=== PATIENT | male | born 1990 | race Caucasian/White ===

== ENCOUNTER 2020-03-30 18:50 | Emergency (ER) | payer MEDICAID, OTHER, SELFPAY ==
[~2020-03-30] VITALS: Ht 175.3 cm; Wt 63.8 kg
[2020-03-30] MEDS ORDERED: KETOROLAC 30 MG/ML 1ML VIAL IV ONE (21:30)
[2020-03-30] MEDS ORDERED: METOCLOPRAMIDE INJ 10MG/2ML VIAL (J2765 PER 1) IV ONE (21:30)
[2020-03-30] MEDS ORDERED: NS 1,000 ML IV ONE (21:30)
[2020-03-30] MEDS ORDERED: diphenhydrAMINE 50MG/ML VIAL (J1200) IV ONE (21:30)
[2020-03-30 21:59] LABS: BASO # 0.1 10^3/uL (0.0-0.2); BASO % 0.9 % (0.0-1.0); EOS # 0.1 10^3/uL (0.0-0.5); EOS % 1.2 % (0.0-3.0); HEMATOCRIT 44.7 % (42.0-52.0); HEMOGLOBIN 14.4 g/dl (13.5-17.5); LYMPH # 1.3 10^3/uL (1.5-5.0); LYMPH % 19.3 % (24.0-44.0); MEAN CORPUSCULAR HEMOGLOBIN 30.1 pg (27.0-33.0); MEAN CORPUSCULAR HGB CONC 32.2 g/dl (32.0-36.5); MEAN CORPUSCULAR VOLUME 93.3 fl (80.0-96.0); MONO # 0.7 10^3/uL (0.0-0.8); MONO % 9.6 % (0.0-5.0); NEUTROPHILS # 4.7 10^3/uL (1.5-8.5); NEUTROPHILS % 68.6 % (36.0-66.0); PLATELET COUNT, AUTOMATED 236 10^3/uL (150-450); RED BLOOD COUNT 4.79 10^6/uL (4.30-6.10); WHITE BLOOD COUNT 6.9 10^3/uL (4.0-10.0)
[2020-03-30 22:19] LABS: BLOOD UREA NITROGEN 12 MG/DL (7-18); C REACTIVE PROTEIN QUANTITATIV 8.68 MG/DL (0.00-0.30); CALCIUM LEVEL 8.4 MG/DL (8.5-10.1); CARBON DIOXIDE LEVEL 27 MEQ/L (21-32); CHLORIDE LEVEL 103 MEQ/L (98-107); GLOMERULAR FILTRATION RATE > 60.0 (>60); GLUCOSE, FASTING 98 MG/DL (70-100); MAGNESIUM LEVEL 2.3 MG/DL (1.8-2.4); POTASSIUM SERUM 4.1 MEQ/L (3.5-5.1); SODIUM LEVEL 136 MEQ/L (136-145)
[2020-03-30 22:31] LABS: ERYTHROCYTE SEDIMENTATION RATE 42 mm/hr (0-15)
--- NOTE | 2020-03-30 23:51 | REPVR ---
PROCEDURE INFORMATION: Exam: CT Head Without Contrast Exam date and time: 03/30/2020 11:17 PM Age: 29 years old Clinical indication: Pain; Headache; Additional info: Severe headache, no similar in past TECHNIQUE: Imaging protocol: Computed tomography of the head without contrast. Radiation optimization: All CT scans at this facility use at least one of these dose optimization techniques: automated exposure control; mA and/or kV adjustment per patient size (includes targeted exams where dose is matched to clinical indication); or iterative reconstruction. COMPARISON: No relevant prior studies available. FINDINGS: Brain: There is no CT evidence for an acute large vessel territorial infarct. No acute intracranial hemorrhage is seen. No mass, mass effect, midline shift, or herniation is noted. The cortical gyration pattern, basal ganglia, thalami, brainstem, and cerebellum are normal in appearance. Cerebral ventricles: No hydrocephalus. Incidental note is made of a normal variant cavum septum pellucidum and cavum vergae, which is persistence of the embryological fluid-filled space between the leaflets of the septum pellucidum. Bones/joints: There is no acute fracture. No suspicious osteolytic or osteoblastic lesion. Paranasal sinuses: Visualized sinuses are unremarkable. No fluid levels. Mastoid air cells: Clear. Orbital cavity: There is a small chronic blowout fracture involving the medial wall of the right orbit. The globes and orbits were not fully imaged. Soft tissues: Unremarkable. No soft tissue fluid collection. IMPRESSION: 1. No acute intracranial abnormality. 2. Small chronic blowout fracture involving the medial wall of the right orbit. Electronically signed by: Carl Lazar On 03/30/2020 23:51:12 PM
[2020-03-31 00:10] VITALS: BP 129/71
== END 2020-03-31 00:12 | disposition home or self-care (01) ==
LOC: M ED 18:50
DX: R50.9 Fever, unspecified (principal); R51.9 Headache, unspecified; R21 Rash and other nonspecific skin eruption; F17.210 Nicotine dependence, cigarettes, uncomplicated
CPT/HCPCS: 70450; 80048; 83735; 85025; 85652; 86140; 87040; 87631; 87880; 96361; 96374; 96375; 99284; J1200; J1885; J2765

== ENCOUNTER 2020-04-15 11:02 | Emergency (ER) | payer MEDICAID ==
[~2020-04-15] VITALS: Ht 175.3 cm; Wt 64.7 kg
[2020-04-15 11:02] VITALS: BP 131/69
[2020-04-15] MEDS ORDERED: KEFL500C17 PO (11:37)
== END 2020-04-15 11:45 | disposition home or self-care (01) ==
LOC: M ED 11:02
DX: J02.0 Streptococcal pharyngitis (principal); F17.210 Nicotine dependence, cigarettes, uncomplicated

== ENCOUNTER 2020-05-28 17:38 | Emergency (ER) | payer MEDICAID, OTHER ==
[~2020-05-28] VITALS: Ht 175.3 cm; Wt 63.2 kg
[~2020-05-28 17:38] MED LIST: KEFL500C17 PO
--- OUTSIDE RECORDS SUMMARY | 2020-05-28 17:44 | CCD ---
Author Author [facility] Organization [facility] Address Unknown Phone Unavailable Support Name Relationship Address Phone UE Next Of Kin Unknown Unavailable OLIVERIO DOOLEY Next Of Kin [address] [place] [address] [place] [address] Next Of Kin Unknown Unavailable ROCAEL PEDRAZA Next Of Kin [address] [place] [address] RITA PEDRAZA Next Of Kin [address] [place] [address] Re-disclosure Warning The records that you are about to access may contain information from federally-assisted alcohol or drug abuse programs. If such information is present, then the following federally mandated warning applies: This information has been disclosed to you from records protected by federal confidentiality rules (42 CFR part 2). The federal rules prohibit you from making any further disclosure of this information unless further disclosure is expressly permitted by the written consent of the person to whom it pertains or as otherwise permitted by 42 CFR part 2. A general authorization for the release of medical or other information is NOT sufficient for this purpose. The Federal rules restrict any use of the information to criminally investigate or prosecute any alcohol or drug abuse patient.The records that you are about to access may contain highly sensitive health information, the redisclosure of which is protected by Article 27-F of the [facility] Public Health law. If you continue you may have access to information: Regarding HIV / AIDS; Provided by facilities licensed or operated by the [facility] Office of Mental Health; or Provided by the [facility] Office for People With Developmental Disabilities. If such information is present, then the following [facility] mandated warning applies: This information has been disclosed to you from confidential records which are protected by state law. State law prohibits you from making any further disclosure of this information without the specific written consent of the person to whom it pertains, or as otherwise permitted by law. Any unauthorized further disclosure in violation of state law may result in a fine or skilled nursing sentence or both. A general authorization for the release of medical or other information is NOT sufficient authorization for further disc losure. Insurance Providers Payer name Policy type / Coverage type Policy ID Covered green party ID Covered green party's relationship to trejo Policy Trejo Plan Information EMEDNY [id number] SP [id number] SELF PAY ONLY [id number] SP [id number] [facility] COMM[facility] PLAN [facility] [id number] SP [id number] [facility] [id number] SP [id number] [facility] [id number] SP [id number] MEDICAID [id number] SP [id number] Results ID Date Data Source [id number] 03/30/2020 09:27:00 PM EST [facility] Name Value Range Interpretation Code Description Data Argelia rce(s) Supporting Document(s) SARS coronavirus 2 RNA [Presence] in Res piratory specimen by SHANI with probe detection [facility] This lab was ordered by [facility] a nd reported by [facility]. Procedure
[2020-05-28] MEDS ORDERED: IBUP200T45 PO (18:00)
--- OUTSIDE RECORDS SUMMARY | 2020-05-28 19:52 | CCD ---
Author Author [facility] Organization [facility] Address Unknown Phone Unavailable Support Name Relationship Address Phone UE Next Of Kin Unknown Unavailable OLIVERIO DOOLEY Next Of Kin [address] [place] [address] [place] [address] Next Of Kin Unknown Unavailable ROCAEL PEDRAZA Next Of Kin [address] [place] [address] RITA PEDRAZA Next Of Kin [address] [place] [address] Re-disclosure Warning The records that you are [...] is protected by Article 27-F of the [facility] Public Health law. If you continue you may have access to information: Regarding HIV / AIDS; Provided by facilities licensed or operated by the [facility] Office of Mental Health; or Provided by the [facility] Office for People With Developmental Disabilities. If such information is present, then the following [facility] mandated warning applies: This information [...] type / Coverage type Policy ID Covered republican ID Covered republican's relationship to trejo Policy Trejo Plan Information EMEDNY [id number] SP [id number] SELF PAY ONLY [id number] SP [id number] [facility]AN [facility] [id number] SP [id number] [facility] [id number] SP [id number] [facility] [id number] SP [id number] MEDICAID [id number] SP [id number] Results ID Date Data Source [id number] 03/30/2020 09:27:00 PM EST [facility] Name Value Range Interpretation Code Description Data Argelia rce(s) Supporting Document(s) SARS coronavirus 2 RNA [Presence] in Res piratory specimen by SHANI with probe detection [facility] This lab was ordered by [facility] a nd reported by [facility]. Procedure
[2020-05-28 21:35] LABS: BASO # 0.1 10^3/uL (0.0-0.2); BASO % 0.9 % (0.0-1.0); EOS # 0.1 10^3/uL (0.0-0.5); EOS % 1.5 % (0.0-3.0); HEMATOCRIT 44.8 % (42.0-52.0); HEMOGLOBIN 14.3 g/dl (13.5-17.5); LYMPH # 2.3 10^3/uL (1.5-5.0); MEAN CORPUSCULAR HEMOGLOBIN 30.3 pg (27.0-33.0); MEAN CORPUSCULAR HGB CONC 31.9 g/dl (32.0-36.5); MEAN CORPUSCULAR VOLUME 94.9 fl (80.0-96.0); MONO # 0.6 10^3/uL (0.0-0.8); MONO % 9.3 % (0.0-5.0); NEUTROPHILS # 3.6 10^3/uL (1.5-8.5); PLATELET COUNT, AUTOMATED 294 10^3/uL (150-450); RED BLOOD COUNT 4.72 10^6/uL (4.30-6.10); WHITE BLOOD COUNT 6.7 10^3/uL (4.0-10.0)
[2020-05-28 22:01] LABS: ACETAMINOPHEN LEVEL < 2.0 UG/ML (10.0-30.0); ALBUMIN 3.7 GM/DL (3.2-5.2); ALT/SGPT 28 U/L (12-78); BILIRUBIN,DIRECT < 0.1 MG/DL (0.0-0.2); BILIRUBIN,TOTAL 0.2 MG/DL (0.2-1.0); TOTAL PROTEIN 8.3 GM/DL (6.4-8.2)
[2020-05-28] MEDS ORDERED: diphenhydrAMINE 25MG CAP PO ONE (22:15)
[2020-05-28] MEDS ORDERED: KETOROLAC 60MG 2ML VIAL IM ONE (22:15)
[2020-05-28 23:02] VITALS: BP 127/81
== END 2020-05-28 23:03 | disposition home or self-care (01) ==
LOC: M ED 17:38
DX: R51.9 Headache, unspecified (principal); F17.210 Nicotine dependence, cigarettes, uncomplicated
CPT/HCPCS: 36415; 80047; 80076; 80143; 85025; 87880; 96372; 99284; J1885

== ENCOUNTER 2020-08-08 11:41 | Inpatient (IN) | payer OTHER ==
[~2020-08-08] VITALS: Ht 177.8 cm; Wt 62.2 kg
[~2020-08-08 11:41] MED LIST changes: +IBUP200T45 PO
--- NOTE | 2020-08-08 12:18 | REP ---
INDICATION: acute neuro symptoms. COMPARISON: None. TECHNIQUE: Axial CT images with multiplanar reformations. FINDINGS: There is a focal hypodensity near the genu of the left internal capsule (im17 se 201). No hemorrhage. Ventricles, cisterns and sulci are within normal limits. No mass effect or midline shift. No abnormal fluid collections. When compared to a prior head CT from 03/30/2020, the hypodensity described was not present. Incidental note made of cavum septum pellucidum et vergae. IMPRESSION: Focal hypodensity at the genu of the left internal capsule is new from the comparison study 03/30/2020. The findings are concerning for recent infarct. Imaging characteristics would suggest older than 24 hours however acuity indeterminate. No bleed. MRI may be helpful in further evaluation. Findings discussed with Dr. Cross in the emergency department at the time of interpretation. <Electronically signed by Adrian Maldonado > 08/08/20 [id number]
[2020-08-08 12:46] LABS: BASO # 0.1 10^3/uL (0.0-0.2); EOS # 0.1 10^3/uL (0.0-0.5); EOS % 2.9 % (0.0-3.0); HEMATOCRIT 41.3 % (42.0-52.0); LYMPH % 40.2 % (24.0-44.0); MEAN CORPUSCULAR HEMOGLOBIN 32.1 pg (27.0-33.0); MEAN CORPUSCULAR HGB CONC 33.9 g/dl (32.0-36.5); MEAN CORPUSCULAR VOLUME 94.7 fl (80.0-96.0); MONO # 0.5 10^3/uL (0.0-0.8); MONO % 11.1 % (2.0-8.0); NEUTROPHILS # 2.2 10^3/uL (1.5-8.5); NEUTROPHILS % 44.6 % (36.0-66.0); PLATELET COUNT, AUTOMATED 193 10^3/uL (150-450); RED BLOOD COUNT 4.36 10^6/uL (4.30-6.10); WHITE BLOOD COUNT 4.9 10^3/uL (4.0-10.0)
[2020-08-08] MEDS ORDERED: ISOVUE-370 76% 100ML VIAL As Ordered ONE (12:47)
[2020-08-08 12:55] LABS: PROTHROMBIN TIME 13.4 SECONDS (12.5-14.3)
[2020-08-08 12:56] LABS: PARTIAL THROMBOPLASTIN TIME 35.9 SECONDS (24.2-38.5)
[2020-08-08 13:05] LABS: ERYTHROCYTE SEDIMENTATION RATE 17 mm/hr (0-15)
[2020-08-08 13:15] LABS: ALBUMIN 3.8 GM/DL (3.2-5.2); ALT/SGPT 25 U/L (12-78); BILIRUBIN,DIRECT < 0.1 MG/DL (0.0-0.2); BILIRUBIN,TOTAL 0.3 MG/DL (0.2-1.0); BLOOD UREA NITROGEN 7 MG/DL (7-18); C REACTIVE PROTEIN QUANTITATIV 0.33 MG/DL (0.00-0.30); CALCIUM LEVEL 9.2 MG/DL (8.5-10.1); CARBON DIOXIDE LEVEL 27 MEQ/L (21-32); CHLORIDE LEVEL 108 MEQ/L (98-107); CHOLESTEROL LEVEL 145 MG/DL (<200); CHOLESTEROL RISK RATIO 4.264 (<5); CK-MB VALUE MASS < 1.0 NG/ML (<3.6); CPK CREATINE PHOSPHOKINASE 67 U/L (39-308); CREATININE FOR GFR 0.84 MG/DL (0.70-1.30); GLOMERULAR FILTRATION RATE > 60.0 (>60); GLUCOSE, FASTING 83 MG/DL (70-100); HDL CHOLESTEROL 34 MG/DL (>40); LDL CHOLESTEROL 83 MG/DL (<100); MB/CK RELATIVE INDEX 1.49 (< OR =4); NON-HDL-C 111 MG/DL; SODIUM LEVEL 138 MEQ/L (136-145); TOTAL PROTEIN 7.9 GM/DL (6.4-8.2); TRIGLYCERIDES LEVEL 140 MG/DL (<150); TROPONIN I < 0.02 NG/ML (< 0.10)
--- NOTE | 2020-08-08 13:30 | REP ---
INDICATION: CVA. COMPARISON: None. TECHNIQUE: Axial CT images with multiplanar reformations with contrast. FINDINGS: The left vertebral artery is dominant. Basilar artery and yarder boss are unremarkable. Internal carotid arteries, proximal and distal MCA branches are normal. A1 segments and LUC branches are unremarkable. IMPRESSION: Normal CT angiogram of the brain. No large vessel stenosis or occlusion. No aneurysm identified. <Electronically signed by Adrian Maldonado > 08/08/20 [id number]
--- NOTE | 2020-08-08 13:32 | REP ---
INDICATION: Question stroke COMPARISON: No prior similar study TECHNIQUE: Axial CT images with multiplanar reformations with contrast. FINDINGS: The right vertebral artery is dominant. The vertebral arteries are present throughout their cervical course. No evidence of stenosis or occlusion. On the right: The common and internal carotid arteries widely patent. No evidence of stenosis or occlusion. On the left: The common and internal carotid arteries widely patent. No evidence of stenosis or occlusion. There is only minimal degenerative changes of the cervical spine. No significant osseous canal narrowing or foraminal narrowing. IMPRESSION: Normal examination. <Electronically signed by Adrian Maldonado > 08/08/20 [id number]
--- NOTE | 2020-08-08 13:36 | REP ---
INDICATION: CVA. COMPARISON: 05/13/2014 a two view exam TECHNIQUE: Portable FINDINGS: The technique utilized in obtaining the radiograph has magnified the cardiac silhouette and accentuated the interstitial markings. The superior mediastinal structures are midline. The cardiac silhouette is unremarkable in size, shape, and position. The diaphragmatic surfaces of the lungs are regular, and the costophrenic angles are clear. The pulmonary iglesias are clear. The imaged osseous structures are intact. IMPRESSION: There is no acute cardiopulmonary disease. <Electronically signed by Emmanuel Zaragoza > 08/08/20 [id number]
[2020-08-08] MEDS ORDERED: ASPIRIN 325 MG TAB PO ONE (13:45)
[2020-08-08] MEDS ORDERED: ACETAMINOPHEN TAB 650MG DOSE (2X325MG) PO PRN (14:20)
[2020-08-08 16:40] VITALS: BP 102/60
[2020-08-08 16:40] LABS: C REACTIVE PROTEIN QUANTITATIV < 0.30 MG/DL (0.00-0.30); RHEUMATOID FACTOR QUANT < 10.0 IU/ML (<15.0)
--- NOTE | 2020-08-08 16:52 | HPEPDOC ---
[facility] Medical History & Physical Date of Admission Aug 08, 2020 Date of Service: Aug 08, 2020 Attending Physician: DOMENICA ARAUZ MD History and Physical CHIEF COMPLAINT: Falling over to the right, slurred speech and facial droop noted on waking this morning HISTORY OF PRESENT ILLNESS: 29 yo M with no significant past medical history except for repeat bouts of strep throat, 3 times over the last few months, s/p antibiotic courses, with the last being in 06/2020, current smoker, who presented to the ED with his mother for noted speech slurring, gait instability, falling over to the right and a right facial droop all noted since this morning when he woke up. He was last seen in his normal state yesterday night as he went to bed and woke up with the above noted changes. Initially the mother describes asking him if he was drunk as he dragged himself upstairs and on his slurred answer back, she decided to take him directly to the ED. In the ED, he was hemodynamically stable, afebrile, breathing comfortably on room air and on ED physical examination had noted R facial droop, dysarthria with expressive aphasia, and 4/5 strength in RUE and RLE with positive R pronator drift, while the L side examination was wnl. Workup was notable for a CT head that showed a focal hypodensity at the genu of the L internal capsule without evidence of bleeding, while CTA brain what wnl without evidence of stenosis, obstruction occlusion or aneurysm, and CTA neck showed widely patent vessels without stenosis or occlusion. He also had a CXR that showed no cardiopulmonary abnormalities. WBC was 4.9, hgb 14, platelets 193, na 138, K 4, Cr 0.84, LFTs wnl, troponin <0.02, covid negative on respiratory panel, LDL 83, HDL 34, Tcholesterol 145, triglycerides 140, tox screen was negative and EKG showed NSR. He is now being admitted for workup and management of a likely cryptogenic stroke. PAST MEDICAL HISTORY: None. Recently had 3 episodes of strep. PAST SURGICAL HISTORY: None SOCIAL HISTORY: Marital status: Single Resides in: [place] with his mother Tobacco use: chronic smoker ETOH: occasional Illicit drug use: None FAMILY HISTORY: Father: Alcohol use disorder Mother: Has thyroid disease Siblings: Alive and well No family history of blood clots or bleeding disorder that he is aware ALLERGIES: Please see below. REVIEW OF SYSTEMS: CONSTITUTIONAL: Feels unwell today, has had a sore throat again for the last 2 days. Mom reports that he has always been thin but weight fluctuates and has been unable to gain weight. He denies recent fever, chills, nausea, emesis, abdominal pain, diarrhea, night sweats. He reports that a sister recently had covid-19 but he did not come into any significant contact with her as she self isolated and he has had no typical symptoms. HEENT: Sometimes gets headaches. No vision changes. Has a sore throat again over the last 2 days. CARDIOVASCULAR: No chest pain, palpitations, decreased exercise tolerance, difficulty laying down flat, leg swelling RESPIRATORY: No shortness of breath, wheezing, cough GASTROINTESTINAL: No nausea, emesis, abdominal pain, diarrhea or constipation GENITOURINARY: No dysuria, penile discharge, penile ulcers or lesions SKIN: NO rashes, no erythema, no lesions MUSCULOSKELETAL: No recent aches or myalgias, weakness began this morning. No prior complaints. NEUROLOGICAL: Speech dysarthric since this AM. Is having difficulty bringing out words. Feels weak in the R side. No vision changes. PSYCHIATRIC: AOx3 ENDOCRINE: No polyuria, polydipsia, palpitations, feeling of impending doom, dramatic weight loss or gain. HEMATOLOGIC/LYMPHATIC: No easy bleeding and bruising, no hematuria, hematochezia, hematemesis, hemoptysis, melena, gum bleeding on teeth brushing, asymmetric swelling of legs or history of clots. HOME MEDICATIONS: Please see below. PHYSICAL EXAMINATION: VITAL SIGNS: HDS, afebrile, breathing comfortably on room air and saturating 98% on room air. GENERAL APPEARANCE: Thin, ill appearing, NAD HEENT: NCAT, PERRLA, EOMI, MMM, inflammed large posterior oropharynx tonsils without exudates CARDIOVASCULAR: RRR, no m/r/g LUNGS: CTAB ABDOMEN: Normoactive bowel sounds throughout, soft, NTND, no noted hepatosplenomegaly on exam EXTREMITIES: WWP, no LE edema NEUROLOGICAL: Has a marilou R facial droop, dysarthria with expressive aphasia, 4/5 strength in RUE and RLE, 5/5 strength in LUE and LLE. PSYCHIATRIC: AOx3 LABORATORY DATA and IMAGING: summarized above MICROBIOLOGY: Please see below. ASSESSMENT: 29 yo M with no significant past medical history except recent recurrent strep throat infections who presented with acute neurological deficits noted in the last >12h and found to have a focal hypodensity at the genu of the L internal capsule c/w L internal capsule acute CVA, most likely cryptogenic with pristine vascular imaging and normal lipid panel now being admitted for further evaluation and management. PLAN: L internal capsule CVA: most likely cryptogenic with only identifiable risk factor being smoking history with pristine vascular imaging and lipid panel -CT head showed L internal capsule hypodensity c/f infarct -CTA brain wnl -CTA neck wnl -covid-19 negative on respiratory panel -Spoke with Dr. Ha and scheduled for GIA with bubble study for 2PM tomorrow, NPO at breakfast for study with suspicion for shunting physiology in the this young seemingly healthy patient -smoking cessation counseling, discussed it at length, also ordered for nursing to provide -stroke education ordered -PT/OT -Ordered extensive hypercoagulability workup in this young patient with an acute stroke with only risk factor of smoking which includes hematology and rheumatology workup -Brain MRI w/o contrast -Telemetry -Neuro check Q4H -aspiration precautions -To advance diet as tolerated per nursing bedside swallow eval for dinner tonight, then NPO at breakfast for 2PM GIA -Last known at baseline >12h before presentation, so no TPA, got full dose ASA, will continue ASA 81 daily, no statins with normal lipid panel Sore throat: suspect strep reinfection -throat culture -EBV PCR DVT ppx: lovenox 40SC daily Vital Signs Vital Signs Date Time Temp Pulse Resp B/P (MAP) Pulse Ox O2 Delivery O2 Flow Rate FiO2 08/08/20 13:45 59 100 08/08/20 13:31 124/57 (79) 08/08/20 11:41 97.7 22 Room Air Laboratory Data Labs 24H Laboratory Tests 2 08/08/20 12:12: Immature Granulocyte % (Auto) 0.2, Neutrophils (%) (Auto) 44.6, Lymphocytes (%) (Auto) 40.2, Monocytes (%) (Auto) 11.1H, Eosinophils (%) (Auto) 2.9, Basophils (%) (Auto) 1.0, Neutrophils # (Auto) 2.2, Lymphocytes # (Auto) 2.0, Monocytes # (Auto) 0.5, Eosinophils # (Auto) 0.1, Basophils # (Auto) 0.1, Nucleated Red Blood Cells % (auto) 0.0, Erythrocyte Sedimentation Rate 17H, Prothrombin Time 13.4, Prothromb Time International Ratio 1.00, Activated Partial Thromboplast Time 35.9, Anion Gap 3L, Glomerular Filtration Rate > 60.0, Calcium Level 9.2, Total Bilirubin 0.3, Direct Bilirubin < 0.1, Aspartate Amino Transf (AST/SGOT) 16, Alanine Aminotransferase (ALT/SGPT) 25, Alkaline Phosphatase 79, Total Creat ine Kinase 67, Creatine Kinase MB < 1.0, Creatine Kinase MB Relative Index 1.49, Troponin I < 0.02, C-Reactive Protein, Quantitative 0.33H, Total Protein 7.9, Albumin 3.8, Albumin/Globulin Ratio 0.9, Triglycerides Level 140, Total Cholesterol 145, LDL Cholesterol 83, Non-HDL Cholesterol (LDL + VLDL) 111, Total HDL Cholesterol 34L, Cholesterol/HDL Ratio 4.264 08/08/20 12:47: POC Glucose (Misc Panel) 88, POC Sodium (Misc Panel) 141, POC Potassium (Misc Panel) 4.3, POC Chloride (Misc Panel) 104, POC Total CO2 (Misc Panel) 26.0, POC Blood Urea Nitrogen (Misc Panel 6L, POC Ionized Calcium (Misc Panel) 5.1, POC Creatinine (Misc Panel) 0.8, POC Hematocrit (Misc Panel) 41.0 CBC/BMP Laboratory Tests 08/08/20 12:12 Microbiology Microbiology 08/08/20 Respiratory Virus Panel (PCR) (PABLO) - Final, Complete Home Medications Scheduled PRN Ibuprofen (Ibu-200) 200 Mg Tablet, 400 MG PO QID PRN for PAIN Allergies Coded Allergies: No Known Allergies (Unverified , 06/19/14) A-FIB/CHADSVASC A-FIB History Current/History of A-Fib/PAF?: No Current PO Anticoag Therapy: No Age/Risk Factor Scoring CHADSVASC: CHADSVASC Response (Comments) Value Age Risk Factor Age < 65 years old 0 Gender Risk Factor Male 0 Hx of CHF No 0 Hx of HTN No 0 Hx of Stroke/TIA/or VTE No 0 Hx of Diabetes No 0 Hx of Vascular Disease No 0 Total 0 Treatment Treatment ordered: NONE Reason Anticoagulant not given: Not indicated/[id number] DOMENICA ARAUZ MD Aug 08, 2020 16:52
--- NOTE | 2020-08-08 19:10 | REPVR ---
PROCEDURE INFORMATION: Exam: MR Head Without Contrast Exam date and time: 08/08/2020 2:20 PM Age: 29 years old Clinical indication: Walking, difficulty; Additional info: CVA TECHNIQUE: Imaging protocol: MR of the head without contrast. COMPARISON: CT Head without contrast 08/08/2020 11:54 AM FINDINGS: Brain: Focus of restricted diffusion in the left globus pallidus demonstrated on diffusion-weighted, ADC map images and is also visible on T1-T2 and FLAIR weighted imaging. Findings consistent with a subacute infarct. Cerebral ventricles: Cavum septum pellucidum. Bones/joints: Unremarkable. Paranasal sinuses: Normal as visualized. No acute sinusitis. Mastoid air cells: Normal as visualized. No mastoid effusion. Orbital cavity: Unremarkable. Soft tissues: Unremarkable. IMPRESSION: 1. Focus of restricted diffusion in the left globus pallidus as described above. Findings consistent with a subacute infarct. 2. Otherwise unremarkable. Electronically signed by: Daniel Yung On 08/08/2020 19:10:53 PM
[2020-08-08 20:00] VITALS: BP 118/60
[2020-08-08 22:00] VITALS: BP 118/60
[2020-08-09] VITALS (9 sets, daily range): BP systolic 103–133; BP diastolic 63–72
[2020-08-09 06:52] LABS: HEMATOCRIT 41.3 % (42.0-52.0); HEMOGLOBIN 13.6 g/dl (13.5-17.5); MEAN CORPUSCULAR HEMOGLOBIN 31.6 pg (27.0-33.0); MEAN CORPUSCULAR HGB CONC 32.9 g/dl (32.0-36.5); PLATELET COUNT, AUTOMATED 185 10^3/uL (150-450); WHITE BLOOD COUNT 5.1 10^3/uL (4.0-10.0)
[2020-08-09 07:13] LABS: BLOOD UREA NITROGEN 10 MG/DL (7-18); CALCIUM LEVEL 9.6 MG/DL (8.5-10.1); CARBON DIOXIDE LEVEL 29 MEQ/L (21-32); CHLORIDE LEVEL 106 MEQ/L (98-107); CREATININE FOR GFR 0.93 MG/DL (0.70-1.30); GLOMERULAR FILTRATION RATE > 60.0 (>60); GLUCOSE, FASTING 82 MG/DL (70-100); POTASSIUM SERUM 4.1 MEQ/L (3.5-5.1); SODIUM LEVEL 139 MEQ/L (136-145)
[2020-08-09] MEDS: ENOXAPARIN 40MG/0.4ML SYRINGE (J1650 PER 10MG) SC SCH (09:45)
[2020-08-09] MEDS: ASPIRIN 81 MG CHEW TABLET PO SCH (09:45)
--- NOTE | 2020-08-09 10:10 | ECGEPIP ---
[facility] - ED Test Date: 2020-08-08 Pat Name: FARRUKH PEDRAZA Department: Room: [place] [address] Gender: Male Food Counter Attendant: ABEBE : 1990 Requested By: RITA Jones Order Number: [id number] Reading MD: Carleen Estevez Measurements Intervals Sanders Rate: 68 P: 36 TX: 114 QRS: 80 QRSD: 78 T: 59 QT: 382 QTc: 406 Interpretive Statements Normal sinus rhythm with sinus arrhythmia Early repolarization increased rate 06/19/14 Electronically Signed on 08-09-2020 10:10:13 EDT by Carleen Estevez
--- NOTE | 2020-08-09 11:19 | IPNPDOC ---
Text Note Date of Service The patient was seen on 08/09/20. NOTE Subjective: -No acute events since admission -NPO this AM for GIA at 2PM Objective: VITAL SIGNS: HDS, afebrile, breathing comfortably on room air and saturating 98% on room air. GENERAL APPEARANCE: Thin, NAD HEENT: NCAT, PERRLA, EOMI, MMM, inflamed large posterior oropharynx tonsils without exudates CARDIOVASCULAR: RRR, no m/r/g LUNGS: CTAB ABDOMEN: Normoactive bowel sounds throughout, soft, NTND, no noted hepatosplenomegaly on exam EXTREMITIES: WWP, no LE edema NEUROLOGICAL: Has a very slight R facial droop, speech has cleared, strength is now full in all 4 extremities. PSYCHIATRIC: AOx3 LABORATORY DATA: reviewed has pending rheum and hematology hypercoagulability workup. RF factor wnl. CBC and BMP were normal IMAGING: Brain MRI without contrast: Focus of restricted diffusion in the left globus pallidus demonstrated on diffusion-weighted, ADC map images and is also visible on T1-T2 and FLAIR weighted imaging. Findings consistent with a subacute infarct. Cerebral ventricles: Cavum septum pellucidum. Bones/joints: Unremarkable. Paranasal sinuses: Normal as visualized. No acute sinusitis. Mastoid air cells: Normal as visualized. No mastoid effusion. Orbital cavity: Unremarkable. Soft tissues: Unremarkable. IMPRESSION: 1. Focus of restricted diffusion in the left globus pallidus as described above. Findings consistent with a subacute infarct. 2. Otherwise unremarkable. CT head without contrast: There is a focal hypodensity near the genu of the left internal capsule (im17 se 201). No hemorrhage. Ventricles, cisterns and sulci are within normal limits. No mass effect or midline shift. No abnormal fluid collections. When compared to a prior head CT from 03/30/2020, the hypodensity described was not present. Incidental note made of cavum septum pellucidum et vergae. IMPRESSION: Focal hypodensity at the genu of the left internal capsule is new from the comparison study 03/30/2020. The findings are concerning for recent infarct. Imaging characteristics would suggest older than 24 hours however acuity indeterminate. No bleed. MRI may be helpful in further evaluation. CTA head: The left vertebral artery is dominant. Basilar artery and product marketing intern are unremarkable. Internal carotid arteries, proximal and distal MCA branches are normal. A1 segments and LUC branches are unremarkable. IMPRESSION: Normal CT angiogram of the brain. No large vessel stenosis or occlusion. No aneurysm identified. CTA neck: The right vertebral artery is dominant. The vertebral arteries are present throughout their cervical course. No evidence of stenosis or occlusion. On the right: The common and internal carotid arteries widely patent. No evidence of stenosis or occlusion. On the left: The common and internal carotid arteries widely patent. No evidence of stenosis or occlusion. There is only minimal degenerative changes of the cervical spine. No significant osseous canal narrowing or foraminal narrowing. IMPRESSION: Normal examination. CXR: The technique utilized in obtaining the radiograph has magnified the cardiac silhouette and accentuated the interstitial markings. The superior mediastinal structures are midline. The cardiac silhouette is unremarkable in size, shape, and position. The diaphragmatic surfaces of the lungs are regular, and the costophrenic angles are clear. The pulmonary iglesias are clear. The imaged osseous structures are intact. IMPRESSION: There is no acute cardiopulmonary disease. ASSESSMENT: 29 yo M with no significant past medical history except recent recurrent strep throat infections who presented with acute neurological deficits noted in the last >12h and found to have a focal hypodensity at the genu of the L internal capsule c/w L internal capsule acute CVA, most likely cryptogenic with pristine vascular imaging and normal lipid panel now being admitted for further evaluation and management. PLAN: L internal capsule CVA: most likely cryptogenic with only identifiable risk factor being smoking history with pristine vascular imaging and lipid panel -CT head showed L internal capsule hypodensity c/f infarct -CTA brain wnl -CTA neck wnl -covid-19 negative on respiratory panel -Spoke with Dr. Ha and scheduled for GIA with bubble study for 2PM today, NPO for study with suspicion for shunting physiology in the this young seemingly healthy patient -smoking cessation counseling, discussed it at length, also ordered for nursing to provide -stroke education ordered -PT/OT --> cleared -f/u pending extensive hypercoagulability workup in this young patient with an acute stroke with only risk factor of smoking which includes hematology and rheumatology workup -Brain MRI w/o contrast confirmed subacute L internal capsule infarct -Telemetry -Neuro check Q4H -aspiration precautions -NPO for 2PM GIA -Last known at baseline >12h before presentation, so no TPA, got full dose ASA, will continue ASA 81 daily, no statins with normal lipid panel Sore throat: suspect strep reinfection -throat culture pending -EBV PCR pending DVT ppx: lovenox 40SC daily VS,Fishbone, I+O VS, Fishbone, I+O Laboratory Tests 08/08/20 12:12 08/09/20 06:18 Vital Signs Date Time Temp Pulse Resp B/P (MAP) Pulse Ox O2 Delivery O2 Flow Rate FiO2 08/09/20 06:00 97.8 65 17 133/72 (92) 98 Room Air I&O- Last 24 Hours up to 6 AM 08/09/20 06:00 Intake Total 0 ml Balance 0 ml DOMENICA ARAUZ MD Aug 09, 2020 08:19
[2020-08-09] MEDS ORDERED: MIDAZOLAM INJ 2MG/2ML VIAL (J2250 PER 1MG) As Ordered ONE ×2 (14:02→14:03)
[2020-08-09] MEDS ORDERED: CETACAINE SPRAY 5GM As Ordered ONE (14:03)
[2020-08-09] MEDS ORDERED: LIDOCAINE VISCOUS 2% SOLN 15ML UDC As Ordered ONE (14:41)
--- NOTE | 2020-08-09 16:26 | T-ECHO ---
TRANSESOPHAGEAL ECHO DATE: 08/09/2020 REFERRING PHYSICIAN: Lisa Tidwell M.D. INDICATION: Acute stroke (cerebral). PREPROCEDURE DIAGNOSIS: Cryptogenic stroke. POSTPROCEDURE DIAGNOSIS: Cryptogenic stroke, normal transesophageal echocardiogram. Negative saline bubble study for detection of intracardiac shunting. PROCEDURE PERFORMED: Transesophageal echocardiogram with saline bubble study. PROCEDURE PERFORMED BY: Lazaro Ha M.D. SUPERVISOR ELECTRON TUBE PROCESSING: None. INTRAVENOUS (IV) SEDATION: Midazolam 4 mg IV. COMPLICATIONS: None. DESCRIPTION OF PROCEDURE: Rhythm was sinus. The patient recommended viscous Lidocaine to gargle and swallow. He received a total of 2 mg midazolam IV for IV sedation. The patient tolerated the procedure well without any immediate complications. Esophageal intubation as accomplished without difficulty by Dr. Ha using a Zaragoza three-dimensional transesophageal echocardiogram probe. The left and right ventricles appeared normal in size and systolic function and without regional wall motion abnormalities. Left ventricle ejection fraction was 60% by visual assessment. Atria appeared normal in size. The atrial septum had some features to suggest the possibility of patent foramen ovale; however, patent foramen ovale could not be demonstrated either by color flow Doppler or with saline bubble study. Saline bubble study with Valsalva maneuver x2 was performed. For each saline bubble study, it consisted of 1 mL of the patient's own blood, 8 mL of injectable saline and 1 mL of air, which was agitated back and forth between two 10 mL syringes via a three-way stopcock. No patent ductus arteriosus. No mass or thrombi were seen within the atria or their appendages. No pericardial effusion. Distal aortic arch and descending thoracic aorta were normal. CONCLUSIONS: 1. Normal transesophageal echocardiogram. 2. No evidence of intracardiac or intrapulmonary shunting seen by saline bubble study x2.
--- NOTE | 2020-08-09 21:19 | CR ---
CONSULTATION DATE: 08/09/2020 REQUESTING PHYSICIAN: Dr. Lisa Tidwell REASON FOR CONSULTATION: Acute stroke HISTORY OF PRESENT ILLNESS: Bonifacio Batista is a 29-year-old man with a history of repeated bouts of strep throat in the last few months requiring antibiotics, smoking, who presented to the Emergency Department with his mother with slurred speech, gait instability, falling to the right side with right sided facial arm and leg weakness. He woke up with these symptoms. He was last seen normal yesterday night before admission when he went to bed and woke up with the above symptoms. He was not a TPA candidate. CTA of head and neck were unremarkable. CT scan of head showed suspected ischemic stroke, hypodensity in genu of internal capsule on the left side. When I saw the patient this evening, the patient states that he feels 100% back to his normal self. All of his symptoms have resolved. His speech, right arm and leg are back to normal. The patient states that he had daily headaches since February 2020. Headaches are frontal, 8 or 9/10 in intensity, lasting all day, pressure and throbbing and character. He denied any neck pain, back pain, dysphagia, dysarthria, diplopia, urinary continence, falls, loss of consciousness. DIAGNOSTIC STUDIES: CTA of head and neck was unremarkable. CT scan of head and MRI scan of brain showed acute ischemic stroke and left internal capsule genu. His transesophageal echocardiogram today was unremarkable. Per Dr. Cody, report is pending. LABORATORY STUDIES: Total cholesterol was 145, LDL was 83 with AST 134. ESR was 17 with normal CBC and metabolic profile. PAST MEDICAL HISTORY: The patient's past medical history is significant for: 1. Three episodes of streptococcal sore throat in the last few months requiring antibiotics. PAST SURGICAL HISTORY: None. FAMILY HISTORY: Father with a history of alcohol abuse. Mother with a history of thyroid disorder. There is no family history of stroke at a young age. SOCIAL HISTORY: He is and lives with his mother. He smokes one pack per day. He denies alcohol or illicit drugs. REVIEW OF SYSTEMS: All systems were reviewed and found to be noncontributory except as mentioned in the history of present illness. ALLERGIES: None. HOME MEDICATIONS: 1. Ibuprofen. 2. Tylenol as needed. PHYSICAL EXAMINATION: VITAL SIGNS: Pulse 69, blood pressure 109/69, respiratory rate 16, 100% saturation on room air. HEENT: The extraocular muscles are intact. No facial weakness. Tongue and uvula are midline. HEART: Regular rate and rhythm. LUNGS: Clear to auscultation. ABDOMEN: Soft, nontender, nondistended. EXTREMITIES: No pedal edema. MUSCULOSKELETAL: No musculoskeletal abnormalities. SKIN: No rash, no signs of meningeal irritation. NEUROLOGICAL: The patient is awake, alert, oriented to place, person and time. Normal speech, comprehension and cooperation. No nystagmus. Visual iglesias are full to confrontation. No tremor, dysmetria on either side. 5/5 strength in all four extremities. Deep tendon reflexes are 2+ throughout. Normal sensation throughout. Gait is normal. ASSESSMENT: 1. Acute left sided ischemic stroke affecting genu off internal capsule. 2. Right hemiparesis, dysarthria related to above resolved. 3. Rule out cardiac source, coagulopathy and vasculopathy. PLAN: 1. Consult Cardiology if he will be a candidate for a loop recorder. 2. Await extensive blood tests for coagulopathy and vasculopathy. His transesophageal echocardiogram per Dr. Cody was unremarkable already. 3. We will Aspirin 81 mg p.o. daily. 4. He can be discharged home if cleared by Physical Therapy and follow up with our office in 1-2 weeks after hospital discharge.
[2020-08-10 06:00] VITALS: BP 109/62
[2020-08-10 06:03] LABS: HEMATOCRIT 39.2 % (42.0-52.0); MEAN CORPUSCULAR HEMOGLOBIN 31.5 pg (27.0-33.0); MEAN CORPUSCULAR HGB CONC 33.2 g/dl (32.0-36.5); MEAN CORPUSCULAR VOLUME 94.9 fl (80.0-96.0); PLATELET COUNT, AUTOMATED 180 10^3/uL (150-450); RED BLOOD COUNT 4.13 10^6/uL (4.30-6.10); WHITE BLOOD COUNT 5.9 10^3/uL (4.0-10.0)
[2020-08-10 06:36] LABS: BLOOD UREA NITROGEN 15 MG/DL (7-18); CALCIUM LEVEL 8.9 MG/DL (8.5-10.1); CARBON DIOXIDE LEVEL 26 MEQ/L (21-32); CHLORIDE LEVEL 107 MEQ/L (98-107); CREATININE FOR GFR 0.86 MG/DL (0.70-1.30); GLOMERULAR FILTRATION RATE > 60.0 (>60); GLUCOSE, FASTING 78 MG/DL (70-100); POTASSIUM SERUM 4.1 MEQ/L (3.5-5.1); SODIUM LEVEL 139 MEQ/L (136-145)
[2020-08-10] MEDS ORDERED: ASPI81CH8 PO (08:19)
--- NOTE | 2020-08-10 08:30 | DS.PDOC ---
Discharge Summary General Date of Admission Aug 08, 2020 at 14:20 Date of Discharge 08/10/2020 Attending Physician: DOMENICA ARAUZ MD Specialist/Consultants Involve: ROCCO ZHU MD Discharge Summary PROCEDURES PERFORMED DURING STAY: GIA with bubble study on 08/09/[address] Ha ADMITTING DIAGNOSES: L internal capsule CVA DISCHARGE DIAGNOSES: L internal capsule cryptogenic CVA COMPLICATIONS/CHIEF COMPLAINT: CVA. HISTORY OF PRESENT ILLNESS: 29 yo M with no significant past medical history except for repeat bouts of strep throat, 3 times over the last few months, s/p antibiotic courses, with the last being in 06/2020, current smoker, who presented to the ED with his mother for noted speech slurring, gait instability, falling over to the right and a right facial droop all noted since the morning of presentation when he woke up after being last seen in his normal state the night prior as he went to bed and woke up with the above noted changes. Initially the mother describes asking him if he was drunk as he dragged himself upstairs and on his slurred answer back, she decided to take him directly to the ED. HOSPITAL COURSE: In the ED, he was hemodynamically stable, afebrile, breathing comfortably on room air and on ED physical examination had noted R facial droop, dysarthria with expressive aphasia, and 4/5 strength in RUE and RLE with positive R pronator drift, while the L side examination was wnl. Workup was notable for a CT head that showed a focal hypodensity at the genu of the L internal capsule without evidence of bleeding, while CTA brain what wnl without evidence of stenosis, obstruction occlusion or aneurysm, and CTA neck showed widely patent vessels without stenosis or occlusion. He also had a CXR that showed no cardiopulmonary abnormalities. WBC was 4.9, hgb 14, platelets 193, na 138, K 4, Cr 0.84, LFTs wnl, troponin <0.02, covid negative on respiratory panel, LDL 83, HDL 34, Tcholesterol 145, triglycerides 140, tox screen was negative and EKG showed NSR. He was admitted for workup and management of a likely cryptogenic stroke. He had a GIA with bubble study by Dr. Ha on 08/10/[address] Ha verbally communicated with me to have been grossly normal without evident of shunting, thrombi or any other noted pathology. Given his young age and unremarkable medical history with the only smoking being his risk factor for a stroke, I ordered an extensive hypercoagulability workup that will be followed up in the outpatient setting with Dr. Zhu as well as a new PCP, in the resident clinic, as he has been having difficulty securing a PCP. On discussion with neurology, Dr. Zhu also recommended outpatient referral to cardiology for potential loop recorder. DISCHARGE MEDICATIONS: Please see below. ALLERGIES: Please see below. PHYSICAL EXAMINATION ON DISCHARGE: VITAL SIGNS: Please see below. GENERAL APPEARANCE: Thin, NAD HEENT: NCAT, PERRLA, EOMI, MMM, large posterior oropharynx tonsils without exudates CARDIOVASCULAR: RRR, no m/r/g LUNGS: CTAB ABDOMEN: Normoactive bowel sounds throughout, soft, NTND, no noted hepatosplenomegaly on exam EXTREMITIES: WWP, no LE edema NEUROLOGICAL: Has a very slight R facial droop only noticeable on smiling, speech has cleared, strength is now full in all 4 extremities. PSYCHIATRIC: AOx3 LABORATORY DATA: please see below has pending rheum and hematology hypercoagulability workup. RF factor wnl. CBC, BMP and lipid panel were normal IMAGING: Brain MRI without contrast: Focus of restricted diffusion in the left globus pallidus demonstrated on diffusion-weighted, ADC map images and is also visible on T1-T2 and FLAIR weighted imaging. Findings consistent with a subacute infarct. Cerebral ventricles: Cavum septum pellucidum. Bones/joints: Unremarkable. Paranasal sinuses: Normal as visualized. No acute sinusitis. Mastoid air cells: Normal as visualized. No mastoid effusion. Orbital cavity: Unremarkable. Soft tissues: Unremarkable. IMPRESSION: 1. Focus of restricted diffusion in the left globus pallidus as described above. Findings consistent with a subacute infarct. 2. Otherwise unremarkable. CT head without contrast: There is a focal hypodensity near the genu of the left internal capsule (im17 se 201). No hemorrhage. Ventricles, cisterns and sulci are within normal limits. No mass effect or midline shift. No abnormal fluid collections. When compared to a prior head CT from 03/30/2020, the hypodensity described was not present. Incidental note made of cavum septum pellucidum et vergae. IMPRESSION: Focal hypodensity at the genu of the left internal capsule is new from the comparison study 03/30/2020. The findings are concerning for recent infarct. Imaging characteristics would suggest older than 24 hours however acuity indeterminate. No bleed. MRI may be helpful in further evaluation. CTA head: The left vertebral artery is dominant. Basilar artery and enlisted advisor are unremarkable. Internal carotid arteries, proximal and distal MCA branches are normal. A1 segments and LUC branches are unremarkable. IMPRESSION: Normal CT angiogram of the brain. No large vessel stenosis or occlusion. No aneurysm identified. CTA neck: The right vertebral artery is dominant. The vertebral arteries are present t hroughout their cervical course. No evidence of stenosis or occlusion. On the right: The common and internal carotid arteries widely patent. No evidence of stenosis or occlusion. On the left: The common and internal carotid arteries widely patent. No evidence of stenosis or occlusion. There is only minimal degenerative changes of the cervical spine. No significant osseous canal narrowing or foraminal narrowing. IMPRESSION: Normal examination. CXR: The technique utilized in obtaining the radiograph has magnified the cardiac silhouette and accentuated the interstitial markings. The superior mediastinal structures are midline. The cardiac silhouette is unremarkable in size, shape, and position. The diaphragmatic surfaces of the lungs are regular, and the costophrenic angles are clear. The pulmonary iglesias are clear. The imaged osseous structures are intact. IMPRESSION: There is no acute cardiopulmonary disease. GIA with bubble study: Post procedure diagnosis: Cryptogenic stroke, normal transesophageal echocardiogram. Negative saline bubble study for detection of intracardiac shunting. PROCEDURE PERFORMED BY: Lazaro Ha M.D. SECONDARY SOCIAL STUDIES TEACHER: None. INTRAVENOUS (IV) SEDATION: Midazolam 4 mg IV. COMPLICATIONS: None. DESCRIPTION OF PROCEDURE: Rhythm was sinus. The patient recommended viscous Lidocaine to gargle and swallow. He received a total of 2 mg midazolam IV for IV sedation. The patient tolerated the procedure well without any immediate complications. Esophageal intubation as accomplished without difficulty by Dr. Ha using a Zaragoza three-dimensional transesophageal echocardiogram probe. The left and right ventricles appeared normal in size and systolic function and without regional wall motion abnormalities. Left ventricle ejection fraction was 60% by visual assessment. Atria appeared normal in size. The atrial septum had some features to suggest the possibility of patent foramen ovale; however, patent foramen ovale could not be demonstrated either by color flow Doppler or with saline bubble study. Saline bubble study with Valsalva maneuver x2 was performed. For each saline bubble study, it consisted of 1 mL of the patient's own blood, 8 mL of injectable saline and 1 mL of air, which was agitated back and forth between two 10 mL syringes via a three-way stopcock. No patent ductus arteriosus. No mass or thrombi were seen within the atria or their appendages. No pericardial effusion. Distal aortic arch and descending thoracic aorta were normal. CONCLUSIONS: 1. Normal transesophageal echocardiogram. 2. No evidence of intracardiac or intrapulmonary shunting seen by saline bubble study x2. PROGNOSIS: Good ACTIVITY: As tolerated DIET: Regular DISCHARGE PLAN: Home with new PCP appt, neurology f/u within 2w, and cardiology referral to Dr. Ha. DISPOSITION: Home DISCHARGE INSTRUCTIONS: Home with new PCP appt, neurology f/u within 2w, and cardiology referral to Dr. Ha. To take ASA 81 daily. ITEMS TO FOLLOWUP ON ON OUTPATIENT: Cryptogenic stroke DISCHARGE CONDITION: Stable TIME SPENT ON DISCHARGE: 45 minutes. Vital Signs/I&Os Vital Signs Date Time Temp Pulse Resp B/P (MAP) Pulse Ox O2 Delivery O2 Flow Rate FiO2 08/10/20 06:00 98.4 67 18 109/62 (78) 99 Room Air 08/09/20 14:35 3.0 I&O- Last 24 Hours up to 6 AM 08/10/20 06:00 Intake Total 810 ml Balance 810 ml Laboratory Data Labs 24H Laboratory Tests 2 08/10/20 05:22: Nucleated Red Blood Cells % (auto) 0.0, Anion Gap 6L, Glomerular Filtration Rate > 60.0, Calcium Level 8.9 CBC/BMP Laboratory Tests 08/10/20 05:22 Microbiology Microbiology 08/10/20 Eye/Ear/Nose/Throat Culture, Received Pending 08/08/20 Respiratory Virus Panel (PCR) (PABLO) - Final, Complete Discharge Medications Scheduled Aspirin (Children's Aspirin) 81 Mg Tab.chew, 81 MG PO DAILY Allergies Coded Allergies: No Known Allergies (Unverified , 06/19/14) DOMENICA ARAUZ MD Aug 10, 2020 08:29
[2020-08-10] MEDS: ASPIRIN 81 MG CHEW TABLET PO SCH (09:12)
[2020-08-10] MEDS: ENOXAPARIN 40MG/0.4ML SYRINGE (J1650 PER 10MG) SC SCH (09:13)
[2020-08-10 10:00] VITALS: BP 107/62
== END 2020-08-10 11:30 | disposition home or self-care (01) | DRG 45 ==
LOC: M ED 11:41 → M ED INP 14:20 → ENRESERV 15:45 → M MSPAV 16:40
PROVIDERS: ADMIT Internal Medicine; ATTEND Internal Medicine
PROC: B246ZZ4 Ultrasonography of Right and Left Heart, Transesophageal (ICD-10-PCS; principal; 2020-08-09 14:00)
DX: I63.59 Cerebral infarction due to unspecified occlusion or stenosis of other cerebral artery (principal); G81.91 Hemiplegia, unspecified affecting right dominant side; R47.01 Aphasia; R29.810 Facial weakness; J02.0 Streptococcal pharyngitis; R47.1 Dysarthria and anarthria; F17.200 Nicotine dependence, unspecified, uncomplicated; Z20.822 Contact with and (suspected) exposure to COVID-19

== ENCOUNTER → 2020-10-17 | Outpatient (REF) | payer OTHER ==
[~2020-10-17] MED LIST changes: +ASPI81CH8 PO
== END ==
LOC: M SFHCPLAZ 17:13
PROVIDERS: ATTEND Hospitalist
DX: J02.9 Acute pharyngitis, unspecified (principal)

== ENCOUNTER → 2020-12-13 | Outpatient (CLI) | payer OTHER ==
[2020-12-13 18:26] LABS: HEMATOCRIT 47.1 % (42.0-52.0); HEMOGLOBIN 15.5 g/dl (13.5-17.5); MEAN CORPUSCULAR HEMOGLOBIN 30.8 pg (27.0-33.0); MEAN CORPUSCULAR HGB CONC 32.9 g/dl (32.0-36.5); MEAN CORPUSCULAR VOLUME 93.6 fl (80.0-96.0); PLATELET COUNT, AUTOMATED 228 10^3/uL (150-450); RED BLOOD COUNT 5.03 10^6/uL (4.30-6.10); WHITE BLOOD COUNT 9.9 10^3/uL (4.0-10.0)
[2020-12-13 19:00] LABS: ALBUMIN 4.6 GM/DL (3.2-5.2); ALT/SGPT 21 U/L (12-78); BILIRUBIN,TOTAL 0.4 MG/DL (0.2-1.0); BLOOD UREA NITROGEN 9 MG/DL (7-18); CALCIUM LEVEL 9.3 MG/DL (8.5-10.1); CARBON DIOXIDE LEVEL 26 MEQ/L (21-32); CHLORIDE LEVEL 107 MEQ/L (98-107); CHOLESTEROL LEVEL 166 MG/DL (<200); CHOLESTEROL RISK RATIO 4.486 (<5); CREATININE FOR GFR 1.09 MG/DL (0.70-1.30); GLOMERULAR FILTRATION RATE > 60.0 (>60); GLUCOSE, FASTING 77 MG/DL (70-100); HDL CHOLESTEROL 37 MG/DL (>40); LDL CHOLESTEROL 102 MG/DL (<100); NON-HDL-C 129 MG/DL; SODIUM LEVEL 139 MEQ/L (136-145); TOTAL PROTEIN 8.1 GM/DL (6.4-8.2); TRIGLYCERIDES LEVEL 134 MG/DL (<150)
[2020-12-13 19:24] LABS: HEPATITIS B SURFACE ANTIBODY POSITIVE (POSITIVE)
[2020-12-13 19:42] LABS: HEPATITIS C VIRUS ABY INDEX 0.1 INDEX (<0.8); HIV 1&2 SCREEN CENTAUR NEGATIVE (NEGATIVE)
[2020-12-13 19:50] LABS: HEMOGLOBIN A1c 5.1 %
[2020-12-14 04:57] LABS: GC DNA AMPLIFICATION NEGATIVE (NEGATIVE)
== END ==
LOC: M PLALAB 14:27
PROVIDERS: ATTEND Student in an Organized Health Care Education/Training Program
DX: I63.89 Other cerebral infarction (principal); Z11.4 Encounter for screening for human immunodeficiency virus [HIV]

== ENCOUNTER → 2020-12-13 | Outpatient (CLI) | payer OTHER | LOC: M PLALAB 14:30 | PROVIDERS: ATTEND Student in an Organized Health Care Education/Training Program | DX: J02.9 Acute pharyngitis, unspecified (principal); Z11.4 Encounter for screening for human immunodeficiency virus [HIV] ==

== ENCOUNTER → 2020-12-27 | Outpatient (CLI) | payer OTHER ==
[2020-12-27 18:07] LABS: HEPATITIS B SURFACE ANTIGEN NEGATIVE (NEGATIVE)
== END ==
LOC: M PLALAB 15:47
PROVIDERS: ATTEND Student in an Organized Health Care Education/Training Program
DX: A53.9 Syphilis, unspecified (principal)

== ENCOUNTER → 2021-02-22 | Outpatient (CLI) | payer OTHER ==
[~2021-02-22] MED LIST changes: -IBUP200T45 PO; +IBUP200T46 PO; +LORA-674
[2021-02-22 18:25] LABS: HEMATOCRIT 42.7 % (42.0-52.0); HEMOGLOBIN 14.2 g/dl (13.5-17.5); MEAN CORPUSCULAR HEMOGLOBIN 31.1 pg (27.0-33.0); MEAN CORPUSCULAR HGB CONC 33.3 g/dl (32.0-36.5); MEAN CORPUSCULAR VOLUME 93.6 fl (80.0-96.0); PLATELET COUNT, AUTOMATED 187 10^3/uL (150-450); RED BLOOD COUNT 4.56 10^6/uL (4.30-6.10)
[2021-02-22 19:04] LABS: ALBUMIN 4.2 GM/DL (3.2-5.2); ALT/SGPT 33 U/L (12-78); BILIRUBIN,TOTAL 0.4 MG/DL (0.2-1.0); BLOOD UREA NITROGEN 7 MG/DL (7-18); CALCIUM LEVEL 9.2 MG/DL (8.5-10.1); CARBON DIOXIDE LEVEL 30 MEQ/L (21-32); CHLORIDE LEVEL 107 MEQ/L (98-107); CREATININE FOR GFR 1.14 MG/DL (0.70-1.30); GLOMERULAR FILTRATION RATE > 60.0 (>60); GLUCOSE, FASTING 80 MG/DL (70-100); POTASSIUM SERUM 4.4 MEQ/L (3.5-5.1); SODIUM LEVEL 138 MEQ/L (136-145); TOTAL PROTEIN 7.4 GM/DL (6.4-8.2)
[2021-02-22 19:55] LABS: ATYPICAL LYMPH 24 % (0-5); BASOPHILS 2 % (0-1); EOSINOPHILS 3 % (0-3); LYMPHOCYTES 43 % (16-44); MONOCYTES 3 % (0-5); NEUTROPHILS 19 % (28-66); PLATELET ESTIMATE NORMAL (NORMAL)
== END ==
LOC: M LAB 17:15
PROVIDERS: ATTEND Student in an Organized Health Care Education/Training Program
DX: Z01.818 Encounter for other preprocedural examination (principal)

== ENCOUNTER → 2021-02-22 | Outpatient (CLI) | payer OTHER | LOC: M LABSMTC 09:23 | PROVIDERS: ATTEND Anesthesiology | DX: Z01.812 Encounter for preprocedural laboratory examination (principal); Z20.822 Contact with and (suspected) exposure to COVID-19 ==

== ENCOUNTER → 2021-03-12 | Outpatient (CLI) | payer OTHER | LOC: M PLALAB 10:24 | PROVIDERS: ATTEND Student in an Organized Health Care Education/Training Program | DX: A53.9 Syphilis, unspecified (principal); I63.89 Other cerebral infarction ==

== ENCOUNTER → 2021-06-10 | Outpatient (CLI) | payer OTHER ==
[2021-06-10 18:02] LABS: BLOOD UREA NITROGEN 5 MG/DL (7-18); CALCIUM LEVEL 9.1 MG/DL (8.5-10.1); CARBON DIOXIDE LEVEL 27 MEQ/L (21-32); CHLORIDE LEVEL 108 MEQ/L (98-107); CREATININE FOR GFR 1.06 MG/DL (0.70-1.30); GLOMERULAR FILTRATION RATE > 60.0 (>60); GLUCOSE, FASTING 77 MG/DL (70-100); POTASSIUM SERUM 4.7 MEQ/L (3.5-5.1); SODIUM LEVEL 140 MEQ/L (136-145)
[2021-06-10 18:51] LABS: HIV 1&2 SCREEN CENTAUR NEGATIVE (NEGATIVE)
== END ==
LOC: M PLALAB 15:16
PROVIDERS: ATTEND Student in an Organized Health Care Education/Training Program
DX: Z91.89 Other specified personal risk factors, not elsewhere classified (principal)

== ENCOUNTER → 2021-09-27 | Outpatient (CLI) | payer OTHER ==
[2021-09-27 18:29] LABS: BLOOD UREA NITROGEN 11 MG/DL (7-18); CALCIUM LEVEL 9.5 MG/DL (8.5-10.1); CARBON DIOXIDE LEVEL 29 MEQ/L (21-32); CHLORIDE LEVEL 106 MEQ/L (98-107); CREATININE FOR GFR 1.14 MG/DL (0.70-1.30); GLOMERULAR FILTRATION RATE > 60.0 (>60); GLUCOSE, FASTING 78 MG/DL (70-100); POTASSIUM SERUM 4.5 MEQ/L (3.5-5.1); SODIUM LEVEL 139 MEQ/L (136-145)
[2021-09-27 19:20] LABS: HIV 1&2 SCREEN CENTAUR NEGATIVE (NEGATIVE)
[2021-09-27 20:47] LABS: GC DNA AMPLIFICATION NEGATIVE (NEGATIVE)
== END ==
LOC: M PLALAB 15:45
PROVIDERS: ATTEND Student in an Organized Health Care Education/Training Program
DX: Z91.89 Other specified personal risk factors, not elsewhere classified (principal); A53.9 Syphilis, unspecified

== ENCOUNTER 2022-07-09 20:08 | Emergency (ER) | payer OTHER ==
[~2022-07-09] VITALS: Ht 175.3 cm; Wt 74.9 kg
[2022-07-09] MEDS ORDERED: ASPI81CH33 PO (20:23)
[2022-07-10 00:09] VITALS: BP 167/58
== END 2022-07-10 00:10 | disposition home or self-care (01) ==
LOC: M ED 20:08
DX: S52.125A Nondisplaced fracture of head of left radius, initial encounter for closed fracture (principal); V00.181A Fall from other rolling-type pedestrian conveyance, initial encounter; Y92.410 Unspecified street and highway as the place of occurrence of the external cause; Y93.55 Activity, bike riding; Y99.8 Other external cause status

== ENCOUNTER → 2022-07-18 | Outpatient (CLI) | payer OTHER ==
[~2022-07-18] MED LIST changes: +ASPI81CH33 PO
== END ==
LOC: M SOG 08:09
PROVIDERS: ATTEND Orthopaedic Surgery
DX: S52.125D Nondisplaced fracture of head of left radius, subsequent encounter for closed fracture with routine healing (principal); Y93.9 Activity, unspecified; Y92.9 Unspecified place or not applicable

== ENCOUNTER → 2022-08-01 | Outpatient (CLI) | payer OTHER | LOC: M SOG 08:16 | PROVIDERS: ATTEND Orthopaedic Surgery | DX: S52.132A Displaced fracture of neck of left radius, initial encounter for closed fracture (principal); X58.XXXA Exposure to other specified factors, initial encounter; Y92.9 Unspecified place or not applicable; Y93.9 Activity, unspecified; Y99.9 Unspecified external cause status ==

== ENCOUNTER → 2022-08-15 | Outpatient (CLI) | payer OTHER | LOC: M SOG 08:08 | PROVIDERS: ATTEND Orthopaedic Surgery | DX: S52.132D Displaced fracture of neck of left radius, subsequent encounter for closed fracture with routine healing (principal); M25.532 Pain in left wrist ==